=== PATIENT | male | born 1970 ===

== ENCOUNTER 2022-09-11 12:14 | Emergency (ER) | payer SELFPAY ==
[2022-09-11] MEDS ORDERED: traMADol 50 MG Tab PO ONE (12:30)
== END 2022-09-11 12:57 | disposition home or self-care (01) ==
LOC: MW.ED 12:14
DX: T33.822A Superficial frostbite of left foot, initial encounter (principal); T33.821A Superficial frostbite of right foot, initial encounter; Z59.00 Homelessness unspecified; X31.XXXA Exposure to excessive natural cold, initial encounter
CPT/HCPCS: 99283; A9270

== ENCOUNTER 2022-09-12 19:08 | Emergency (ER) | payer SELFPAY ==
[2022-09-12 20:05] LABS: ACETAMINOPHEN <2.0 ug/mL; BLOOD UREA NITROGEN,BUN 13 mg/dL (7.0-18.0); CARBON DIOXIDE,CO2 24.2 mmol/L (21.0-32.0); CHLORIDE,CL 99 mmol/L (98-107); GLUCOSE RANDOM 155 mg/dL (74-106); POTASSIUM,K 3.5 mmol/L (3.5-5.1); SODIUM,NA 138 mmol/L (136-148)
[2022-09-12 20:06] LABS: ESTIMATED GFR 108 mL/min (>60)
[2022-09-12 20:19] LABS: CORONAVIRUS COVID-19 NAA NEGATIVE (NEGATIVE); INFLUENZA A NAA NEGATIVE (NEGATIVE); INFLUENZA B NAA NEGATIVE (NEGATIVE); RESPIRATORY SYNCYTIAL VIR NAA NEGATIVE (NEGATIVE)
[2022-09-12] MEDS ORDERED: Lactated Ringers 1,000 ML IV STA (20:57)
[2022-09-13] MEDS ORDERED: Ketorolac 30 MG/ML SDV IVPUSH ONE (00:16)
[2022-09-13] MEDS ORDERED: LORazepam 2 MG/ML SDV IVPUSH ONE (00:16)
[2022-09-13] MEDS ORDERED: OLANZapine 5 MG Tab PO ONE (02:40)
== END 2022-09-13 09:45 | disposition home or self-care (01) ==
LOC: MW.ED 19:08
DX: F10.129 Alcohol abuse with intoxication, unspecified (principal); R45.851 Suicidal ideations; Y90.8 Blood alcohol level of 240 mg/100 ml or more; Z20.822 Contact with and (suspected) exposure to COVID-19
CPT/HCPCS: 0241U; 36415; 71045; 80053; 80143; 80179; 80305; 80307; 81003; 82947; 83605; 83735; 84439; 84443; 84484; 85025; 85610; 93005; 96361; 96374; 96375; 99284; A9270; J1885; J2060; J7120

== ENCOUNTER 2022-09-13 13:14 | Emergency (ER) | payer MEDICAID ==
[2022-09-13 16:15] LABS: CARBON DIOXIDE,CO2 27.9 mmol/L (21.0-32.0); POTASSIUM,K 3.4 mmol/L (3.5-5.1)
[2022-09-13] MEDS ORDERED: Sodium Chloride 0.9% 2.5 ML Syringe FLUSH PRN (16:36)
[2022-09-13] MEDS ORDERED: Ondansetron 4 MG/2 ML SDV IVPUSH ONE (16:38)
[2022-09-13] MEDS ORDERED: HYDROmorphone 1 MG/ML Syringe IVPUSH ONE (16:38)
[2022-09-13] MEDS ORDERED: Sodium Chloride 0.9% 1,000 ML IV ONE (16:38)
[2022-09-13] MEDS ORDERED: Alum Hydro/Mag Hydro/Simeth XS 15 ML, Lidocaine 2% 5 ML PO ONE ×2 (16:39)
[2022-09-13] MEDS ORDERED: Magnesium Sulfate/Water 2 GM in Premix Bag 1 BAG IV ONE (17:08)
[2022-09-13] MEDS: Sodium Chloride 0.9% 10 ML Syringe FLUSH PRN ×2 (17:31→19:56)
[2022-09-13] MEDS ORDERED: Famotidine 20 MG/2 ML SDV IVPUSH ONE (19:25)
[2022-09-13] MEDS ORDERED: Pantoprazole 40 MG Tab.CR PO STA (19:35)
[2022-09-13] MEDS: HYDROmorphone 1 MG/ML Syringe IVPUSH ONE ×2 (19:58→20:06)
[2022-09-13] MEDS ORDERED: Acetaminophen/HYDROcodone 325-5 MG Tab PO ONE (19:59)
== END 2022-09-13 20:14 | disposition home or self-care (01) ==
LOC: MW.ED 13:14
DX: K29.80 Duodenitis without bleeding (principal); E83.42 Hypomagnesemia; F17.210 Nicotine dependence, cigarettes, uncomplicated
CPT/HCPCS: 36415; 74177; 76705; 80053; 83605; 83690; 83735; 84484; 85025; 93005; 96365; 96366; 96375; 99284; A9270; J1170; J2405; J3475; J3490; J7030